=== PATIENT | female | born 2005 | race African-American/Black ===

== ENCOUNTER 2024-11-05 21:19 | Emergency (ER) | payer BC, SELFPAY ==
[2024-11-05 21:43] VITALS: BP 108/63; PULSE 68; TEMP 36.6; O2SAT 99; BMI 17.5
--- NOTE | 2024-11-05 22:57 | ED_ITS ---
HPI HPI - General Adult General Chief complaint: Extremity Injury, Upper Stated complaint: R SHOULDER PAIN Time Seen by Provider: 11/05/24 22:47 Source: patient Mode of arrival: walk-in Limitations: no limitations History of Present Illness HPI narrative: presents complaining of pain and points to the right scapula area. 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 Has pain same site with change in position and with cough. Not short of breath. No fever, chills or nausea Related Data Home Medications ?Medication ?Instructions ?Recorded ?Confirmed No Known Home Medications 11/05/24 05/0 03/24 Allergies Allergy/AdvReac Type Severity Reaction Status Date / Time No Known Drug Allergies Allergy Verified 11/05/24 21:48 Opioid HPI Opioid Management Most Recent Opioid Data: Last Pain Scale 5 11/05/24, 22:46 Review of Systems ROS Status of ROS 10 or more systems reviewed and unremark able except as noted in history and below PFSH PFSH Social History Little interest or pleasure in doing things: not at all Feeling down, depressed, or hopeless: not at all Exam Constitutional Vital Signs, click to edit/add: Last Vital Signs Temp 97.8 F 11/05/24 21:43 Pulse 68 11/05/24 21:43 Resp 18 11/05/24 21:43 BP 108/63 11/05/24 21:43 Pulse Ox 99 11/05/24 21:43 Common normals: no apparent distress, average body habitus, oriented x3, no limitations, healthy appearing, alert and well nourished [facility] Common normals: normocephalic and head/scalp atraumatic Eye Common normals: EOMs intact bilaterally and conjunctivae normal Chest Other: right scapula chest with tenderness. Reproduces pain when raising her right arm Respiratory Common normals: normal respiratory effort, no retractions, no use of accessory muscles and clear to auscultation bilaterally Cardio Common normals: regular rate, regular rhythm, S1 normal heart sound and S2 normal heart sound GI Common normals: Normal to inspection, nondistended, normoactive bowel sounds present, soft to palpation and non-tender Extremity Common normals: normal to inspection and full ROM Neuro Common normals: oriented x3, CN's II-XII intact bilaterally and moves all extremities Psych Appearance: grossly normal Course Vital Signs Vital signs: Vital Signs Temperature 97.8 F 11/05/24 21:43 Pulse Rate 68 11/05/24 21:43 Respiratory Rate 18 11/05/24 21:43 Blood Pressure 108/63 11/05/24 21:43 Pulse Oximetry 99 11/05/24 21:43 Temperature 97.8 F 11/05/24 21:43 Pulse Rate 68 11/05/24 21:43 Respiratory Rate 18 11/05/24 21:43 Blood Pressure 108/63 11/05/24 21:43 Pulse Oximetry 99 11/05/24 21:43 Medical Decision Making MDM Narrative Medical decision making narrative: patient presents with pain right back. muscular pain . xray of the shoulder and chest are neg. Patient informed of working diagnosis of muscular strain and discharged home with a prescription for Flexeril 5mg tid prn Discharge Plan Discharge Chief Complaint: Extremity Injury, Upper Clinical Impression: Muscle strain of right upper back Patient Disposition: Home, Self-Care Prescriptions / Home Meds: No Action No Known Home Medications Print Language: Armenian Instructions: Thoracic Back Strain (ED) Referrals: Physician,Non-Staff, MD [Primary Care Provider] - 1 week
== END 2024-11-06 01:55 | disposition home or self-care (01) ==
PROVIDERS: Emergency Provider Internal Medicine
DX: S29.012A Strain of muscle and tendon of back wall of thorax, initial encounter (principal); X50.9XXA Other and unspecified overexertion or strenuous movements or postures, initial encounter
CPT/HCPCS: 71046; 73030; 99283